=== PATIENT | male | born 1950 | race Two or more races ===

== ENCOUNTER 2025-01-28 15:39 | Inpatient (IN) | payer OTHER ==
[~2025-01-28] VITALS: Ht 170.2 cm; Wt 63.5 kg
[2025-01-28] MEDS ORDERED: CRESTOR40 MG (15:58)
[2025-01-28] MEDS ORDERED: NEURONTIN300 MG (15:58)
[2025-01-28] MEDS ORDERED: ZETIA10 MG (15:58)
[2025-01-28] MEDS ORDERED: FAMOtidine 10 MG/ML (4ML VIAL) IV PUSH ONE (16:45)
[2025-01-28] MEDS ORDERED: FAMOTIDINE/PF 20 MG/2 ML VIAL ONE (16:46)
[2025-01-28 17:26] LABS: MEAN CELL VOLUME 76.5 fL (80.0-100.00); MEAN CORPUSCULAR HEMOGLOBIN 23.8 pg (27.00-32.0); MEAN CORPUSCULAR HGB CONC 31.2 g/dl (32.0-36.0); PLATELET COUNT 195 K/uL (150-450); RED BLOOD COUNT 3.31 M/uL (4.00-6.00); RED CELL DISTRIBUTION WIDTH 20.3 % (11.5-14.5)
[2025-01-28 17:39] LABS: PH,URINE 6.5 (5.0-8.0); URINE APPEARANCE Clear; URINE BILIRRUBIN Negative (NEGATIVE); URINE BLOOD Negative; URINE COLOR Yellow; URINE GLUCOSE Negative (NEGATIVE); URINE KETONE Negative (NEGATIVE); URINE LEUKOCYTE Negative; URINE NITRATE Negative; URINE PROTEIN 30 (NEGATIVE); URINE UROBILINOGEN 0.2 E.U./dl
[2025-01-28 17:43] LABS: URINE BACTERIA 8.5 uL (0.0-1933); URINE WBC 2.5 uL (0.0-23.2)
[2025-01-28 18:01] LABS: URINE CAST 0.44 uL (0.0-1.40); URINE RBC 1.4 uL (0.0-20.8); ob POSITIVE (NEGATIVE)
[2025-01-28 18:09] LABS: HEMATOCRIT 25.3 % (39.0-48.0); HEMOGLOBIN 7.9 g/dL (13-16.00)
[2025-01-28 18:16] LABS: ALBUMIN 2.8 gm/dL (3.4-5.0); BILIRUBIN TOTAL 0.53 mg/dL (0.3-1.2); CALCIUM 9.4 mg/dL (8.5-10.1); CREATININE SERUM 1.67 mg/dL (0.70-1.30); GFR 40.64; GLOBULINA 7.6 G/DL (2.4-3.5); POTASSIUM 4.31 mEq/L (3.5-5.1)
[2025-01-28 18:29] LABS: TOTAL PROTEIN 10.4 gm/dL (6.4-8.2)
[2025-01-28 18:31] LABS: INR 1.03; PROTHROMBIN TIME 11.2 SECONDS (9.0-11.5)
[2025-01-28] MEDS ORDERED: 0.9 % SODIUM CHLORIDE 1,000 ML IV ONE (18:45)
[2025-01-28 19:40] LABS: PARTIAL THROMBOPLASTIN TIME > 139.0 SECONDS (22.0-34.0)
[2025-01-28] MEDS ORDERED: PHYTONADIONE 10 MG/ML AMPUL SUBCUTANEO ONE (21:00)
[2025-01-28] MEDS ORDERED: PANTOPRAZOLE SODIUM 40 MG/VIAL VIAL IV ONE (21:00)
[2025-01-28] MEDS ORDERED: CIPROFLOXACIN IN 5 % DEXTROSE 400 MG/200 ML PIGGYBAG IV ONE (21:00)
[2025-01-28] MEDS ORDERED: 0.9 % SODIUM CHLORIDE 1,000 ML IV SCH (21:00)
[2025-01-28] MEDS ORDERED: METRONIDAZOLE/SODIUM CHLORIDE 500 MG/100 ML PIGGYBACK IV ONE (21:00)
[2025-01-28] MEDS ORDERED: ONDANSETRON HCL 4 MG in 0.9 % SODIUM CHLORIDE 50 ML IV PRN (21:15)
[2025-01-28] MEDS ORDERED: ACETAMINOPHEN 500 MG GEL..CAP PO PRN (21:15)
[2025-01-28] MEDS ORDERED: PHYTONADIONE 10 MG/ML AMPUL ONE (23:25)
[2025-01-29] VITALS (8 sets, daily range): BP systolic 116–126; BP diastolic 72–82; O2SAT 90–99
[2025-01-29] MEDS ORDERED: METRONIDAZOLE/SODIUM CHLORIDE 100 ML IV SCH (01:00)
[2025-01-29 01:12] LABS: C-REACTIVE PROTEIN 6.11 MG/DL (0.00-0.29)
[2025-01-29 01:13] LABS: D DIMER 4.29 MG/L
[2025-01-29 01:15] LABS: INR 1.05; PROTHROMBIN TIME 11.4 SECONDS (9.0-11.5)
[2025-01-29] MEDS ORDERED: PANTOPRAZOLE SODIUM 40 MG/VIAL VIAL IV SCH (05:00)
[2025-01-29 05:39] LABS: PARTIAL THROMBOPLASTIN TIME > 139.0 SECONDS (22.0-34.0)
[2025-01-29] MEDS ORDERED: CIPROFLOXACIN IN 5 % DEXTROSE 200 ML IV SCH (09:00)
[2025-01-29 22:01] LABS: HEMATOCRIT 29.5 % (39.0-48.0); MEAN CELL VOLUME 77.5 fL (80.0-100.00); MEAN CORPUSCULAR HGB CONC 32.6 g/dl (32.0-36.0); PLATELET COUNT 168 K/uL (150-450); RED BLOOD COUNT 3.81 M/uL (4.00-6.00); RED CELL DISTRIBUTION WIDTH 19.9 % (11.5-14.5)
[2025-01-29 22:04] LABS: MEAN CORPUSCULAR HEMOGLOBIN 25.1 pg (27.00-32.0)
[2025-01-29 22:05] LABS: HEMOGLOBIN 9.6 g/dL (13-16.00)
[2025-01-30] VITALS (8 sets, daily range): BP systolic 112–127; BP diastolic 66–80; O2SAT 90–100
[2025-01-30] MEDS ORDERED: PHYTONADIONE 10 MG/ML AMPUL SUBCUTANEO SCH (09:00)
[2025-01-30 11:55] LABS: HEMATOCRIT 29.8 % (39.0-48.0); HEMOGLOBIN 9.7 g/dL (13-16.00); MEAN CELL VOLUME 77.6 fL (80.0-100.00); MEAN CORPUSCULAR HEMOGLOBIN 25.3 pg (27.00-32.0); MEAN CORPUSCULAR HGB CONC 32.7 g/dl (32.0-36.0); PLATELET COUNT 154 K/uL (150-450); RED BLOOD COUNT 3.84 M/uL (4.00-6.00); RED CELL DISTRIBUTION WIDTH 19.4 % (11.5-14.5)
[2025-01-30 12:45] LABS: ALBUMIN 2.7 gm/dL (3.4-5.0); BILIRUBIN TOTAL 1.06 mg/dL (0.3-1.2); CALCIUM 9.3 mg/dL (8.5-10.1); CREATININE SERUM 1.45 mg/dL (0.70-1.30); GFR 47.84; GLOBULINA 6.6 G/DL (2.4-3.5); POTASSIUM 4.33 mEq/L (3.5-5.1); TOTAL PROTEIN 9.3 gm/dL (6.4-8.2)
[2025-01-31] VITALS (8 sets, daily range): BP systolic 113–132; BP diastolic 71–75; O2SAT 96–99
[2025-01-31 07:32] LABS: HEMATOCRIT 28.7 % (39.0-48.0); HEMOGLOBIN 9.4 g/dL (13-16.00); MEAN CELL VOLUME 77.3 fL (80.0-100.00); MEAN CORPUSCULAR HEMOGLOBIN 25.5 pg (27.00-32.0); PLATELET COUNT 157 K/uL (150-450); RED BLOOD COUNT 3.71 M/uL (4.00-6.00); RED CELL DISTRIBUTION WIDTH 20.4 % (11.5-14.5)
[2025-02-01 01:48] VITALS: BP 114/68; O2SAT 97
[2025-02-01 08:46] VITALS: BP 115/76; O2SAT 100
== END 2025-02-01 10:54 | disposition home or self-care (01) | DRG 841 ==
LOC: ER 15:41 → MEDJ 21:15 → SEC-K 21:15 → SURH 01-29 00:22 → MEDJ 01-29 01:05
PROVIDERS: General Practice; ADMIT Student in an Organized Health Care Education/Training Program; ATTEND Student in an Organized Health Care Education/Training Program
PROC: BW21YZZ Computerized Tomography (CT Scan) of Abdomen and Pelvis using Other Contrast (ICD-10-PCS; 2025-01-28)
PROC: 30233N1 Transfusion of Nonautologous Red Blood Cells into Peripheral Vein, Percutaneous Approach (ICD-10-PCS; principal; 2025-01-29)
PROC: 8E0ZXY6 Isolation (ICD-10-PCS; 2025-01-29)
PROC: 4A12X4Z Monitoring of Cardiac Electrical Activity, External Approach (ICD-10-PCS; 2025-01-29)
DX: C91.10 Chronic lymphocytic leukemia of B-cell type not having achieved remission (principal); B02.29 Other postherpetic nervous system involvement; K52.1 Toxic gastroenteritis and colitis; D68.8 Other specified coagulation defects; D84.9 Immunodeficiency, unspecified; T45.1X5A Adverse effect of antineoplastic and immunosuppressive drugs, initial encounter; D50.0 Iron deficiency anemia secondary to blood loss (chronic); D63.0 Anemia in neoplastic disease; R16.1 Splenomegaly, not elsewhere classified; E78.5 Hyperlipidemia, unspecified; Z88.0 Allergy status to penicillin; Z51.11 Encounter for antineoplastic chemotherapy